=== PATIENT | male | born 1955 | race Two or more races ===

== ENCOUNTER 2018-01-10 12:08 | Outpatient (CLI) | payer OTHER | END 2018-01-10 12:35 | disposition home or self-care (01) | LOC: RAD 501 12:08 | DX: M25.561 Pain in right knee (principal) ==

== ENCOUNTER 2020-03-16 12:54 | Outpatient (CLI) | payer OTHER ==
[2020-03-16] MEDS ORDERED: DESCOVY 200-251 EACH (14:09)
[2020-03-16] MEDS ORDERED: TIVICAY50 MG (14:09)
[2020-03-16] MEDS ORDERED: ATORVASTATIN CA20 MG (14:10)
[2020-03-16] MEDS ORDERED: TOPROL XL100 M1 (14:10)
[2020-03-16] MEDS ORDERED: DITROPAN XL10 MG (14:10)
[2020-03-16] MEDS ORDERED: VASOTEC20 M1 (14:11)
[2020-03-16] MEDS ORDERED: AMLODIPINE-OLM1 EAC3 (14:11)
[2020-03-16] MEDS ORDERED: OSTERA TABLET1 EACH (14:11)
[2020-03-16] MEDS ORDERED: MYRBETRIQ25 MG (14:12)
[2020-03-16] MEDS ORDERED: LEVAQUIN750 MG PO (17:45)
== END 2020-03-16 13:03 | disposition home or self-care (01) ==
LOC: EKG 12:54
PROVIDERS: ATTEND Orthopaedic Surgery
DX: I10 Essential (primary) hypertension (principal); M17.0 Bilateral primary osteoarthritis of knee; Z01.810 Encounter for preprocedural cardiovascular examination

== ENCOUNTER 2020-03-16 13:43 | Emergency (ER) | payer OTHER ==
[~2020-03-16] VITALS: Ht 213.4 cm; Wt 108.9 kg
[2020-03-16] MEDS ORDERED: DESCOVY 200-251 EACH (14:09)
[2020-03-16] MEDS ORDERED: TIVICAY50 MG (14:09)
[2020-03-16] MEDS ORDERED: ATORVASTATIN CA20 MG (14:10)
[2020-03-16] MEDS ORDERED: TOPROL XL100 M1 (14:10)
[2020-03-16] MEDS ORDERED: DITROPAN XL10 MG (14:10)
[2020-03-16] MEDS ORDERED: VASOTEC20 M1 (14:11)
[2020-03-16] MEDS ORDERED: AMLODIPINE-OLM1 EAC3 (14:11)
[2020-03-16] MEDS ORDERED: OSTERA TABLET1 EACH (14:11)
[2020-03-16] MEDS ORDERED: MYRBETRIQ25 MG (14:12)
[2020-03-16] MEDS ORDERED: LEVAQUIN750 MG PO (17:45)
== END 2020-03-16 18:15 | disposition home or self-care (01) ==
LOC: ER 13:43
DX: B20 Human immunodeficiency virus [HIV] disease (principal); L97.311 Non-pressure chronic ulcer of right ankle limited to breakdown of skin; L97.321 Non-pressure chronic ulcer of left ankle limited to breakdown of skin; L08.89 Other specified local infections of the skin and subcutaneous tissue; B95.61 Methicillin susceptible Staphylococcus aureus infection as the cause of diseases classified elsewhere; B96.4 Proteus (mirabilis) (morganii) as the cause of diseases classified elsewhere; B96.89 Other specified bacterial agents as the cause of diseases classified elsewhere; B96.1 Klebsiella pneumoniae [K. pneumoniae] as the cause of diseases classified elsewhere; Z03.818 Encounter for observation for suspected exposure to other biological agents ruled out

== ENCOUNTER 2020-05-27 12:42 | Emergency (ER) | payer OTHER ==
[~2020-05-27] VITALS: Ht 182.9 cm; Wt 108.9 kg
[~2020-05-27 12:42] MED LIST: AMLODIPINE-OLM1 EAC3; ATORVASTATIN CA20 MG; DESCOVY 200-251 EACH; DITROPAN XL10 MG; LEVAQUIN750 MG PO; MYRBETRIQ25 MG; OSTERA TABLET1 EACH; TIVICAY50 MG; TOPROL XL100 M1; VASOTEC20 M1
== END 2020-05-28 11:16 | disposition home or self-care (01) ==
LOC: ER 12:42
DX: N39.0 Urinary tract infection, site not specified (principal); R19.7 Diarrhea, unspecified; E86.0 Dehydration; Z03.818 Encounter for observation for suspected exposure to other biological agents ruled out

== ENCOUNTER 2020-06-02 00:49 | Emergency (ER) | payer OTHER ==
[~2020-06-02] VITALS: Ht 195.6 cm; Wt 99.8 kg
[2020-06-02] MEDS ORDERED: ZYRTEC10 M3 PO (10:55)
[2020-06-02] MEDS ORDERED: MEDROLPACK PO (10:55)
[2020-06-02] MEDS ORDERED: BENADRYL25 MG PO (10:55)
== END 2020-06-02 11:14 | disposition home or self-care (01) ==
LOC: ER 00:49
DX: T78.3XXA Angioneurotic edema, initial encounter (principal)

== ENCOUNTER 2020-11-15 06:20 | Emergency (ER) | payer OTHER ==
[~2020-11-15] VITALS: Ht 182.9 cm; Wt 108.9 kg
[~2020-11-15 06:20] MED LIST changes: +BENADRYL25 MG PO; +MEDROLPACK PO; +ZYRTEC10 M3 PO
[2020-11-15] MEDS ORDERED: CIPRO500 MG (06:49)
[2020-11-15] MEDS ORDERED: TIVICAY50 MG (06:49)
[2020-11-15] MEDS ORDERED: HORIZANT300 MG (06:50)
[2020-11-15] MEDS ORDERED: MYRBETRIQ25 MG (06:50)
[2020-11-15] MEDS ORDERED: LIPITOR20 MG (06:50)
[2020-11-15] MEDS ORDERED: AMLODIPINE-OLM1 EAC3 (06:51)
[2020-11-15] MEDS ORDERED: TOPROL XL100 M1 (06:51)
[2020-11-15] MEDS ORDERED: DITROPAN XL10 MG (06:52)
[2020-11-15] MEDS ORDERED: ADULT LOW DOSE81 M1 (06:52)
[2020-11-15] MEDS ORDERED: ALLEGRA ALLERG180 MG PO (08:01)
[2020-11-15] MEDS ORDERED: IRON325 MG PO (08:01)
== END 2020-11-15 08:21 | disposition home or self-care (01) ==
LOC: ER 06:20
DX: R60.0 Localized edema (principal); T78.01XA Anaphylactic reaction due to peanuts, initial encounter; X58.XXXA Exposure to other specified factors, initial encounter

== ENCOUNTER 2020-12-09 11:07 | Emergency (ER) | payer OTHER ==
[~2020-12-09] VITALS: Ht 182.9 cm; Wt 108.9 kg
[~2020-12-09 11:07] MED LIST changes: +ADULT LOW DOSE81 M1; +ALLEGRA ALLERG180 MG PO; +CIPRO500 MG; +HORIZANT300 MG; +IRON325 MG PO; +LIPITOR20 MG
[2020-12-09] MEDS ORDERED: LASIX20 MG PO (13:52)
== END 2020-12-09 14:07 | disposition home or self-care (01) ==
LOC: ER 11:07
DX: R60.0 Localized edema (principal)